=== PATIENT | female | born 1995 | race African-American/Black ===

== ENCOUNTER 2019-03-09 20:47 | Emergency (ER) | payer MEDICAID ==
[~2019-03-09] VITALS: Ht 167.6 cm; Wt 77.0 kg
[2019-03-10 00:41] VITALS: BP 109/68
== END 2019-03-10 00:44 | disposition home or self-care (01) ==
LOC: ER 20:47
DX: N93.9 Abnormal uterine and vaginal bleeding, unspecified (principal); F17.200 Nicotine dependence, unspecified, uncomplicated
CPT/HCPCS: 81025; 99283